=== PATIENT | male | born 1955 | race Caucasian/White ===

== ENCOUNTER 2023-10-13 09:24 | Observation (INO) ==
[2023-10-13 12:05] LABS: Hematocrit 46.2 % (38-53); Hemoglobin 15.8 g/dL (13.2-16.3); Mean Corpuscular Hemoglobin 31.2 pg (27-33); Mean Corpuscular Hgb Conc 34.2 g/dL (31-36); Mean Corpuscular Volume 91.1 fL (80-97); Mean Platelet Volume 9.2 fL (7.5-11.2); Platelet Count 145 10^3/uL (150-450); Red Blood Count 5.07 10^6/uL (4.06-5.63); Red Cell Distribution Width 13.7 % (12-17); White Blood Count 16.3 10^3/uL (3.6-10.2)
[2023-10-13 12:22] LABS: INR 1.13 (0.85-1.14)
[2023-10-13] MEDS: Ondansetron 4 mg VIAL 2 MG/ML 2 ml VIAL IV ONE (12:25)
[2023-10-13] MEDS: Lactated Ringers 1000 ml BAG 1,000 ML IV ONE ×2 (12:26→15:20)
[2023-10-13 12:47] LABS: ABS Lymphocytes 0.4 10^3/uL (1.0-4.8); ABS Monocytes 1.9 10^3/uL (0.0-1.1); ABS Neutrophils 13.9 10^3/uL (1.5-7.6); Lymphocyte % 2.8 %
[2023-10-13 12:58] LABS: Urine Appearance Clear; Urine Bacteria Absent /HPF (Absent); Urine Bilirubin Negative (Negative); Urine Blood Negative (Negative); Urine Color Yellow; Urine Glucose 4+ (>=1000 mg/dL) (Negative); Urine Ketones 4+ (Negative); Urine Nitrite Negative (Negative); Urine Protein 1+ (>=30 mg/dL) (Negative); Urine Red Blood Cell Trace(0-2/hpf) /HPF (0-Trace); Urine Squamous Epithelial Cell Present /HPF (Absent); Urine Urobilinogen Negative (Negative); Urine White Blood Cell Trace(0-5/hpf) /HPF (0-Trace); Urine pH 5.5 (5.0-8.0)
[2023-10-13 13:08] LABS: ALT 10 U/L (7-52); AST 8 U/L (13-39); Albumin 4.2 g/dL (3.2-5.2); Albumin/Globulin Ratio 1.5 (1-3); Alkaline Phosphatase 60 U/L (35-149); Anion Gap 17 mmol/L (2-16); Blood Urea Nitrogen 17 mg/dL (6-24); CO2 Carbon Dioxide 19 mmol/L (22-32); Calcium 9.5 mg/dL (8.6-10.3); Chloride 92 mmol/L (101-111); Creatinine, Serum 0.92 mg/dL (0.67-1.17); Globulin 2.8 g/dL (2-4); Glucose 306 mg/dL (70-100); Lipase < 10 U/L (11.0-82.0); Potassium 4.4 mmol/L (3.5-5.0); Sodium 128 mmol/L (135-145); Total Bilirubin 1.3 mg/dL (0.2-1.0)
[2023-10-13] MEDS: Iodixanol (CONTRAST) 320 MG/ML 100 ML SDV IV ONE (13:35)
[2023-10-13 14:16] LABS: C Reactive Protein 507.71 mg/L (<8.01)
[2023-10-13] MEDS: cefTRIAXone 1 gm/50 mL D5W 1 GM/50 ML BAG IV ONE (15:13)
[2023-10-13] MEDS: metroNIDAZOLE IV 500 MG/100ML 500 MG/100 ML BAG IVPB ONE (15:21)
[2023-10-13] MEDS ORDERED: Ondansetron 4 mg VIAL 2 MG/ML 2 ml VIAL IV PRN ×2 (16:41→16:48)
[2023-10-13] MEDS ORDERED: fentaNYL 100 mcg/2 ml 50 MCG/ML VIAL IV PRN (16:41)
[2023-10-13] MEDS ORDERED: Naloxone 0.4 mg VIAL 0.4 mg/ml 1 ml VIAL IV PRN (16:41)
[2023-10-13] MEDS ORDERED: Metoclopramide 5 MG/ML VIAL (10 mg) IV PRN (16:41)
[2023-10-13] MEDS ORDERED: HYDROmorphone 0.5 MG/0.5 ML SYRINGE IV SLOW PU PRN ×2 (16:51→18:38)
[2023-10-13] MEDS ORDERED: Lidocaine 2% PF 5 ML VIAL ONE (16:55)
[2023-10-13] MEDS ORDERED: Rocuronium 50 mg VIAL 10 mg/ml 5 ml VIAL (50 mg) ONE ×2 (16:55→16:57)
[2023-10-13] MEDS ORDERED: Propofol 10 MG/ML 20 ML BTL ONE (16:55)
[2023-10-13] MEDS ORDERED: Midazolam 2 mg/2 ml VIAL 1 mg/ml 2 ml VIAL (2 mg) ONE (16:58)
[2023-10-13] MEDS ORDERED: fentaNYL 250 mcg/5 ml 50 MCG/ML 5 ml VIAL (250 MCG) ONE (16:58)
[2023-10-13] MEDS ORDERED: NS 0.45% 1000 ml BAG 1,000 ML IV SCH (17:00)
[2023-10-13] MEDS ORDERED: Bupivacaine 0.25% EPI 200,000 30 ML SDV ONE (17:00)
[2023-10-13] MEDS ORDERED: Sodium Citrate/Citric Acid LIQ 15 ML UDC ONE (17:29)
[2023-10-13] MEDS ORDERED: Famotidine IV 10 MG/ML 2 ml VIAL (20 mg) ONE (17:29)
[2023-10-13] MEDS: Lactated Ringers 1000 ml BAG 1,000 ML IV SCH ×2 (17:36→21:43)
[2023-10-13] MEDS ORDERED: Dexamethasone IV 4 MG/ML VIAL 1 ml VIAL ONE (18:12)
[2023-10-13] MEDS ORDERED: Ondansetron 4 mg VIAL 2 MG/ML 2 ml VIAL ONE (18:12)
[2023-10-13] MEDS ORDERED: Acetaminophen IV 1 GM/100ML 1,000 MG/100 ML BAG IV ONE (18:14)
[2023-10-13] MEDS ORDERED: HYDROcodone/ACETAMIN 5/325 mg TAB PO PRN (18:37)
[2023-10-13 19:15] LABS: Rapid COVID-19 Molecular Undetected (Undetected)
[2023-10-13] MEDS ORDERED: Dextrose 50% Syringe 50 ml 25 GM/50 ML SYRINGE IV PUSH PRN (20:43)
[2023-10-13] MEDS: metroNIDAZOLE IV 500 MG/100ML 500 MG/100 ML BAG IVPB SCH (22:41)
[2023-10-14] MEDS: Acetaminophen IV 1 GM/100ML 1,000 MG/100 ML BAG IV ONE (05:11)
[2023-10-14] MEDS: Lactated Ringers 1000 ml BAG 1,000 ML IV SCH (05:11)
[2023-10-14] MEDS: Buffered Lidocaine 1% SYRIN 1 ml INTRADERM ONE (05:11)
[2023-10-14] MEDS: Scopolamine 1 mg/72hr PATCH TRANSDERM ONE (05:11)
[2023-10-14] MEDS: Famotidine IV 10 MG/ML 2 ml VIAL (20 mg) IV SLOW PU ONE (05:12)
[2023-10-14] MEDS: Sodium Citrate/Citric Acid LIQ 15 ML UDC PO ONE (05:12)
[2023-10-14 07:05] LABS: Creatinine, Serum 0.97 mg/dL (0.67-1.17); Potassium 4.1 mmol/L (3.5-5.0); eGFR CKD-EPI 84.5 (>60)
[2023-10-14] MEDS: cefTRIAXone 1 gm/50 mL D5W 1 GM/50 ML BAG IV SCH (07:57)
[2023-10-14 10:45] VITALS: BP 131/74
== END 2023-10-14 12:22 | disposition home or self-care (01) ==
LOC: EDHOLD 09:24 → ED 09:24 → AA 17:05 → SSU 17:28
PROVIDERS: ADMIT Surgery; ATTEND Surgery